=== PATIENT | female | born 1980 | race African-American/Black ===

== ENCOUNTER 2016-11-27 02:30 | Emergency (ER) | payer OTHER ==
[2016-11-27 03:08] VITALS: BP 124/63; PULSE 65; TEMP 98.7
[2016-11-27] MEDS ORDERED: IBUPROFEN 600 MG TABLET (FP) PO ONE ×2 (03:38→03:56)
--- NOTE | 2016-11-27 03:45 | PDOC ---
History of Present Illness - General Chief Complaint: Burn Stated Complaint: EMPLOYEE/BURN HAND Time Seen by Provider: 11/27/16 03:21 - History of Present Illness Initial Comments: 11/27/16 03:43 CHIEF COMPLAINT: HISTORY OF PRESENT ILLNESS: back of hand touched blanket heater, sent down by admin upstairs. no signs of burn, no erythema, no blister, no loss of skin. No recent travel or sick contacts. PAST MEDICAL HISTORY: Denies past medical history FAMILY HISTORY: Denies SOCIAL HISTORY: Lives at home with ____. Occupation: . Denies tobacco, alcohol, illicit drug use. SURGICAL HISTORY: Denies ALLERGIES: No known drug allergies REVIEW OF SYSTEMS General/Constitutional: Denies fever or chills. Denies weakness, weight change. HEENT: Denies change in vision. Denies ear pain or discharge. Denies sore throat. Cardiovascular: Denies chest pain or shortness of breath. Respiratory: Denies cough, wheezing, or hemoptysis. Gastrointestinal: Denies nausea, vomiting, diarrhea or constipation. Denies rectal bleeding. Genitourinary: Denies dysuria, frequency, or change in urination. Musculoskeletal: Denies joint or muscle swelling or pain. Denies neck or back pain. Skin and breasts: Denies rash or easy bruising. Neurologic: Denies headache, vertigo, loss of consciousness, or loss of sensation. Psychiatric: Denies depression or anxiety. Endocrine: Denies increased thirst. Denies abnormal weight change. Hematologic/Lymphatic: Denies anemia, easy bleeding, or history of blood clots. Allergic/Immunologic: Denies hives or skin allergy. Denies latex allergy. PHYSICAL EXAM General Appearance: Well-appearing, appropriately dressed. No apparent distress , no intoxication. HEENT: EOMI, PERRLA, normal ENT inspection, normal voice, TMs normal, pharynx normal. No conjunctival pallor. No photophobia, scleral icterus. Neck: Supple. Trachea midline. No tenderness, rigidity, carotid bruit, stridor , lymphadenopathy, or thyromegaly. Respiratory/Chest: Lungs CTAB. No shortness of breath, chest tenderness, respiratory distress, accessory muscle use. No crackles, rales, rhonchi, stridor , wheezing, dullness Cardiovascular: RRR. S1, S2. No JVD, murmur, bradycardia, tachycardia. Vascular Pulses: Dorsalis-Pedis (R): 2+, Dorsalis-Pedis (L): 2+ Gastrointestinal/Abdominal: Normal bowel sounds. Abdomen soft, non-distended. No tenderness or rebound tenderness. No organomegaly, pulsatile mass, guarding , hernia, hepatomegaly, splenomegaly. Lymphatic: No adenopathy, tenderness. Musculoskeletal/Extremities: Normal inspection. FROM of all extremities, normal capillary refill. Pelvis Stable. No CVA tenderness. No tenderness to extremities, pedal edema, swelling, erythema or deformity. Integumentary: Appropriate color, dry, warm. No cyanosis, erythema, jaundice or rash Neurologic: talent development consultant II-XII intact. Fully oriented, alert. Appropriate mood/affect. Motor strength 5/5. No appreciable EOM palsy, facial droop or sensory deficit. 11/27/16 04:17 Past History - Past Medical History Allergies/Adverse Reactions: Allergies Allergy/AdvReac Type Severity Reaction Status Date / Time No Known Allergies Allergy Verified 11/27/16 02:58 Other medical history: denies - Psycho/Social/Smoking Cessation Hx Suicidal Ideation: No Smoking History: Never smoked *Physical Exam - Vital Signs Last Vital Signs Temp Pulse Resp BP Pulse Ox 98.7 F 65 18 124/63 100 11/27/16 02:55 11/27/16 02:55 11/27/16 02:55 11/27/16 02:55 11/27/16 02:55 Medical Decision Making - Medical Decision Making 11/27/16 03:43 dressed with xeroform, kerlix ibuprofen 600 mg *DC/Admit/Observation/Transfer Diagnosis at time of Disposition: Contact with hot engines, machinery and tools, initial encounter - Discharge Dispostion Admit: No - Patient Instructions Printed Discharge Instructions: DI for Marte Additional Instructions: Please take ibuprofen for pain. Keep your hand clean and dry for the next 24 hours, then remove dressing. If you experience any increased pain, redness, swelling, warmth, to the site of injury, please return to the ER .
== END 2016-11-27 03:59 | disposition home or self-care (01) ==
LOC: JER 02:30
PROC: 2W2FX4Z Dressing of Left Hand using Bandage (ICD-10-PCS; principal; 2016-11-27)
DX: T23.002A Burn of unspecified degree of left hand, unspecified site, initial encounter (principal); X16.XXXA Contact with hot heating appliances, radiators and pipes, initial encounter; Y93.89 Activity, other specified; Y92.238 Other place in hospital as the place of occurrence of the external cause; Y99.0 Civilian activity done for income or pay
CPT/HCPCS: 99281-25